=== PATIENT | female | born 1945 | race Caucasian/White ===

== ENCOUNTER 2018-08-23 22:37 | Emergency (ER) | payer MEDICARE, MEDICAID ==
[2018-08-23 23:18] VITALS: BP 160/96
[2018-08-23] MEDS ORDERED: HYDROmorphone 0.5 MG/0.5 ML SYRINGE IVPUSH ONE (23:40)
[2018-08-23] MEDS ORDERED: Ondansetron 4 MG/2 ML SDV IVPUSH ONE (23:40)
[2018-08-23] MEDS ORDERED: methylPREDNISolone Sodium Succinate 125 MG/2 ML SDV IVPUSH ONE (23:41)
--- NOTE | 2018-08-23 23:44 | EDM.PDOC ---
ED HPI GENERAL MEDICAL PROBLEM - General Chief Complaint: Headache Stated Complaint: HEAD ACHE Time Seen by Provider: 08/23/18 23:39 Source of Information: Reports: Patient History Limitations: Reports: No Limitations - History of Present Illness INITIAL COMMENTS - FREE TEXT/NARRATIVE: 73-year-old female presents to the ED with severe upper neck pain primarily on the right side but it radiates across to the other side below each ear. Associated diffuse headache with nausea. Came on 3 days ago and is gradually progressed in intensity. It is worsened by any movement of her head or neck. No falls or closed head injuries.. She has a history of severe coronary disease having had triple bypass 7 ureter years ago after an OR and subsequently one stent placement. She has significant congestive heart failure. Only change in medications was see addition of spironolactone to her treatment plan last week by her funds transfer clerk Dr. Vazquez. This was in an effort to help with potassium supplementation and waist because of Lasix 40 mg twice a day. She her blood pressure is elevated at present 160/96 but she is rather anxious. She is told that her blood pressure usually is normal. Onset: Gradual Onset Date: 08/23/18 Duration: Day(s):, Getting Worse Location: Reports: Neck (With pain referred to the base of her skull and across both sides were upper neck but worse on the right side.) Quality: Reports: Ache (Associated deep aching pain with sharp stabbing component with movement of her head or neck.) Severity: Moderate (Associated nausea) Improves with: Reports: Rest ( 7 out of 10. not moving helps some. ) Worsens with: Reports: Movement (Movement of the head or neck.) Associated Symptoms: Reports: Headaches, Loss of Appetite, Nausea/Vomiting, Shortness of Breath (On exertion chronically). Denies: Confusion, Chest Pain, Cough, cough w sputum, Diaphoresis (Fused headache at present with associated nausea), Fever/Chills, Malaise, Rash, Seizure (Nausea without vomiting) Treatments CAR WORKER: Reports: Acetaminophen, Other (see below) (None.) Neck Pain Score (Numeric/FACES): 10 - Related Data Allergies Allergy/AdvReac Type Severity Reaction Status Date / Time morphine AdvReac Nausea and Verified 08/23/18 23:17 Vomiting Home Meds: Home Meds Aspirin [[place] Aspirin] 81 mg PO DAILY 12/08/14 [History] Cholecalciferol (Vitamin D3) [Vitamin D3] 10,000 unit PO DAILY 12/08/14 [History ] Furosemide [Lasix] 20 mg PO 0600,1400 12/08/14 [History] Insulin Glarg,Human.Rec.Analog [Lantus] 62 unit SQ BEDTIME 12/08/14 [History] Isosorbide Mononitrate [Imdur] 30 mg PO DAILY 12/08/14 [History] Nitroglycerin [Nitrostat] 0.4 mg SL ASDIRECTED PRN 12/08/14 [History] Rosuvastatin [Crestor] 40 mg PO BEDTIME 12/08/14 [History] Dexlansoprazole [Dexilant] 30 mg PO DAILY 12/14/14 [History] FLUoxetine HCl [Prozac] 40 mg PO DAILY 05/05/15 [History] Acetaminophen [Tylenol] 650 mg PO Q4H PRN 03/14/16 [History] Albuterol Sulfate [Proair Hfa] 2 puff IH Q4HR PRN 03/14/16 [History] Losartan [Cozaar] 25 mg PO BID 03/14/16 [History] Albuterol/Ipratropium [DuoNeb 3.0-0.5 MG/3 ML] 3 ml NEB Q4H PRN #60 neb [Rx] Carvedilol [Coreg] 12.5 mg PO BID #60 tablet 10/22/16 [Rx] Dextromethorphan/guaiFENesin [Robitussin DM] 10 ml PO Q4H #240 ml 10/22/16 [Rx] Fluticasone/Salmeterol [Advair Diskus 100-50] 1 puff INH BID #1 diskus 10/22/16 [Rx] Temazepam [Restoril] 15 mg PO BEDTIME #30 cap 10/22/16 [Rx] Theophylline [Theophylline Anhydrous] 300 mg PO DAILY #30 tab.er 10/22/16 [Rx] Tiotropium [Spiriva HandiHaler] 18 mcg INH DAILY #1 diskus 10/22/16 [Rx] Levothyroxine 125 mcg PO ACBREAKFAST 10/24/16 [History] Dronabinol [Marinol] 2.5 mg PO BID #60 cap 10/26/16 [Rx] Insulin Aspart [NovoLOG] 10 unit SUBCUT TIDAC #5 pen 10/26/16 [Rx] Potassium Chloride [Klor-Con 10] 40 meq PO DAILY #30 tab.er 10/26/16 [Rx] Spironolactone [Aldactone] 25 mg PO DAILY 30 Days tablet 10/26/16 [Rx] Dextromethorphan/guaiFENesin [Robitussin DM] 10 ml PO Q4H #1 bottle 10/27/16 [Rx ] oxyCODONE HCl/Acetaminophen [Percocet 5-325 mg Tablet] 1 each PO Q4H PRN #12 tablet 08/24/18 [Rx] predniSONE [Deltasone] 20 mg PO ASDIRECTED #13 tablet 08/24/18 [Rx] Past Medical History HEENT History: Reports: Cataract, Impaired Vision Other HEENT History: wears glasses Cardiovascular History: Reports: Arrhythmia (History of V. tach.), Bypass ( Triple bypass carried out in 2010.), CAD, Heart Failure, High Cholesterol, Hypertension, OR (Prior to her triple bypass 7 years ago. Subsequently has required one stent placement.), Stents (One stent.) Other Cardiovascular History: heart murmur, cardiac cath, v tach Respiratory History: Reports: Asthma, SOB, Other (See Below) Other Respiratory History: ER doctor suspects COPD Gastrointestinal History: Reports: Colon Polyp Other Gastrointestinal History: 14 polyps removed. Genitourinary History: Reports: Chronic Renal Insuffiency Other Genitourinary History: CKD III Musculoskeletal History: Reports: Arthritis, Back Pain, Chronic, Osteoarthritis , Osteoporosis Neurological History: Reports: Neuropathy, Diabetic Psychiatric History: Reports: Depression Endocrine/Metabolic History: Reports: Diabetes, Type II (Controlled with insulin.), Hypothyroidism, Obesity/BMI 30+ - Past Surgical History HEENT Surgical History: Reports: Cataract Surgery Cardiovascular Surgical History: Reports: Coronary Artery Bypass, Coronary Artery Stent Social & Family History - Family History Family Medical History: Noncontributory - Caffeine Use Caffeine Use: Reports: None Other Caffeine Use: 3 cups/day Caffeine Use Comment: 3 cups daily - Living Situation & Occupation Living situation: Reports: , with Spouse Occupation: Retired ED ROS GENERAL - Review of Systems Review Of Systems: See Below Constitutional: Reports: Malaise, Fatigue, Decreased Appetite. Denies: Fever, Chills, Weight Loss HEENT: Reports: Glasses (Last couple of days.). Denies: Hearing Loss, Nosebleed , Throat Swelling Respiratory: Reports: Shortness of Breath. Denies: Wheezing, Pleuritic Chest Pain, Cough, Sputum Cardiovascular: Reports: Dyspnea on Exertion (Occasional lightheadedness when she stands too quickly chronically), Lightheadedness. Denies: Chest Pain, Blood Pressure Problem, Claudication, Orthopnea Endocrine: Reports: Fatigue GI/Abdominal: Reports: Constipation (Occasional problems with constipation.). Denies: Abdominal Pain : Reports: Frequency, Incontinence (Stress component.) Musculoskeletal: Reports: Neck Pain, Shoulder Pain, Back Pain, Joint Pain (Both knees have arthritis she's had the left knee replaced. Occasional hip pain.) Skin: Reports: Bruising (Is fairly easily.) Neurological: Reports: Headache (Due to knee pain.), Difficulty Walking Psychiatric: Reports: No Symptoms ( Occasional headaches.) Hematologic/Lymphatic: Reports: No Symptoms Immunologic: Reports: No Symptoms - Physical Exam Exam: See Below Exam Limited By: No Limitations General Appearance: Alert, WD/WN, Mild Distress (Appears that she is in discomfort.) Eye Exam: Bilateral Eye: Normal Inspection Ears: Normal TMs Throat/Mouth: Normal Inspection, Normal Lips, Normal Teeth, Normal Oropharynx, Other (Tender over both temporomandibular joints.) Head Exam: Atraumatic, Normocephalic Neck: Normal Inspection, Limited Range of Motion, Tender Lateral (Tender laterally particularly on the right side over C3-4-5 level. No crepitus on movement. It is very painful on looking to the left.). No: Lymphadenopathy (L) , Lymphadenopathy (R) Respiratory/Chest: No Respiratory Distress, Decreased Breath Sounds, Wheezing ( Decreased air entry to the lower 25% of both lung saunders. Clinically she has COPD). No: Rales ( vocational expiratory wheeze noted), Rhonchi Cardiovascular: Regular Rate, Rhythm, No Edema, No Gallop, No Murmur (Trade 1 systolic ejection murmur at the left sternal border, but with aortic). No: Normal Peripheral Pulses GI/Abdominal: Normal Bowel Sounds ( stenosis), Soft, Non-Tender, No Organomegaly , Other (Evidence of previous cholecystectomy and she reports total belt hysterectomy.) Neuro Exam (Abbreviated): Alert, Oriented, CN II-XII Intact, Normal Cognition, No Motor/Sensory Deficits Back Exam: Normal Inspection, Decreased Range of Motion, Vertebral Tenderness Extremities: Normal Inspection (MR spine bilaterally.), Limited Range of Motion (Osteophytic changes right knee. Left knee has been replaced. Limited range of motion of both hips as well.) Psychiatric: Normal Affect, Normal Mood Skin Exam: Warm, Dry, Intact, Normal Color, No Rash Course - Vital Signs Last Recorded V/S: Last Vital Signs Temp 36.9 C 08/23/18 23:13 Pulse 78 08/23/18 23:13 Resp 18 08/23/18 23:13 BP 160/96 H 08/23/18 23:13 Pulse Ox 91 L 08/23/18 23:13 - Orders/Labs/Meds Orders: Active Orders 24 hr Category Date Time Status EKG Documentation Completion [RC] STAT Care 08/23/18 23:39 Active Cervical Spine wo Cont [CT] Stat Exams 08/24/18 00:30 Taken Labs: Laboratory Tests 08/24/18 08/24/18 08/24/18 Range/Units 00:12 00:12 00:58 WBC 9.53 (3.98-10.04) K/mm3 RBC 4.73 (3.98-5.22) M/mm3 Hgb 14.6 (11.2-15.7) gm/L Hct 44.0 (34.1-44.9) % MCV 93.0 (79.4-94.8) fl MCH 30.9 (25.6-32.2) pg MCHC 33.2 (32.2-35.5) g/dl RDW Std Deviation 47.3 H (36.4-46.3) fL Plt Count 257 (182-369) K/mm3 MPV 9.5 (9.4-12.3) fl Neutrophils % (Manual) 52 (40-60) % Band Neutrophils % 2 (0-10) % Lymphocytes % (Manual) 39 (20-40) % Atypical Lymphs % 0 % Monocytes % (Manual) 7 (2-10) % Eosinophils % (Manual) 0 L (0.7-5.8) % Basophils % (Manual) 0 L (0.1-1.2) Platelet Estimate Adequate RBC Morph Comment Normal ESR 49 H (0-20) mm/hr PT 10.7 (9.5-12.1) SECONDS INR 0.98 Sodium (136-145) mEq/L Potassium (3.5-5.1) mEq/L Chloride (98-107) mEq/L Carbon Dioxide (21-32) mEq/L Anion Gap (5-15) BUN (7-18) mg/dL Creatinine (0.55-1.02) mg/dL Est Cr Clr Drug Dosing mL/min Estimated GFR (MDRD) (>60) mL/min BUN/Creatinine Ratio (14-18) Glucose (83-115) mg/dL Calcium (8.5-10.1) mg/dL Magnesium (1.8-2.4) mg/dl Total Bilirubin (0.2-1.0) mg/dL AST (15-37) U/L ALT (14-59) U/L Alkaline Phosphatase (46-116) U/L CK-MB (CK-2) (0-3.6) ng/ml Troponin I (0.00-0.056) ng/mL C-Reactive Protein (<1.0) mg/dL NT-Pro-B Natriuret Pep (0-450) pg/mL Total Protein (6.4-8.2) g/dl Albumin (3.4-5.0) g/dl Globulin gm/dL Albumin/Globulin Ratio (1-2) 08/24/18 08/24/18 Range/Units 00:58 00:58 WBC (3.98-10.04) K/mm3 RBC (3.98-5.22) M/mm3 Hgb (11.2-15.7) gm/L Hct (34.1-44.9) % MCV (79.4-94.8) fl MCH (25.6-32.2) pg MCHC (32.2-35.5) g/dl RDW Std Deviation (36.4-46.3) fL Plt Count (182-369) K/mm3 MPV (9.4-12.3) fl Neutrophils % (Manual) (40-60) % Band Neutrophils % (0-10) % Lymphocytes % (Manual) (20-40) % Atypical Lymphs % % Monocytes % (Manual) (2-10) % Eosinophils % (Manual) (0.7-5.8) % Basophils % (Manual) (0.1-1.2) Platelet Estimate RBC Morph Comment ESR (0-20) mm/hr PT (9.5-12.1) SECONDS INR Sodium 137 (136-145) mEq/L Potassium 3.9 (3.5-5.1) mEq/L Chloride 101 (98-107) mEq/L Carbon Dioxide 27 (21-32) mEq/L Anion Gap 12.9 (5-15) BUN 24 H (7-18) mg/dL Creatinine 1.5 H (0.55-1.02) mg/dL Est Cr Clr Drug Dosing 25.63 mL/min Estimated GFR (MDRD) 34 (>60) mL/min BUN/Creatinine Ratio 16.0 (14-18) Glucose 132 H (83-115) mg/dL Calcium 9.0 (8.5-10.1) mg/dL Magnesium 1.8 (1.8-2.4) mg/dl Total Bilirubin 0.5 (0.2-1.0) mg/dL AST 22 (15-37) U/L ALT 24 (14-59) U/L Alkaline Phosphatase 76 (46-116) U/L CK-MB (CK-2) 2.4 (0-3.6) ng/ml Troponin I < 0.017 (0.00-0.056) ng/mL C-Reactive Protein 1.0 (<1.0) mg/dL NT-Pro-B Natriuret Pep 1084 H (0-450) pg/mL Total Protein 7.9 (6.4-8.2) g/dl Albumin 3.2 L (3.4-5.0) g/dl Globulin 4.7 gm/dL Albumin/Globulin Ratio 0.7 L (1-2) Meds: Medications Discontinued Medications Generic Name Dose Route Start Last Admin Trade Name Freq PRN Reason Stop Dose Admin Hydromorphone HCl 0.5 mg 08/23/18 23:40 08/24/18 00:12 Dilaudid IVPUSH 08/23/18 23:41 0.5 mg ONETIME ONE Administration Methylprednisolone Sodium Succinate 62.5 mg 08/23/18 23:41 08/24/18 00:12 Solu-Medrol IVPUSH 08/23/18 23:42 62.5 mg ONETIME ONE Administration Ondansetron HCl 4 mg 08/23/18 23:40 08/24/18 00:12 Zofran IVPUSH 08/23/18 23:41 4 mg ONETIME ONE Administration - Radiology Interpretation Free Text/Narrative:: 73-year-old female presents the ED with gradually worsening cervical neck pain primarily on the right side for the last 3 days. Associated now with a diffuse headache and associated nausea. Not vomited. Neuro exam is normal. Movement of her neck causes intense pain i.e. cervical neck osteophytic changes on clinical exam. She has history of coronary disease and severe congestive failure. She is feeling a little bit more short of breath than normal. Recent medication changes with the addition of Spiriva lactone to her treatment plan last by her funds transfer clerk. Is in an effort to reduce her potassium needs as she is on Lasix 40 mg twice daily for CHF. Clinically she has osteophytic changes in her cervical spine causing her cervical neck pain likely referred pain to the head causing the headache. Plan IV saline lock. Dilaudid 0.5 mg IV with Zofran 4 mg IV. ECG to be done. Routine labs to be done. - Re-Assessments/Exams Free Text/Narrative Re-Assessment/Exam: 08/24/18 01:55 labs are only partially back. Essentially revealed normal hematology. BNP is elevated at 1084. Chemistry is pending. CT of the cervical spine reveals prominent osteophytic spurring projecting posteriorly at C5-C6 level no disc herniation or cord compression is appreciated. There are degenerative changes involving the spinous process of thoracic 1 as well with no spinal canal stenosis. There is diffuse cervical spondylosis with loss of disc space height from C3-C7. No fractures or dislocations. 08/24/18 01:57 Labs reveal a normal white count at 9.53. Differential reveals 52 % neutrophils and 2% band cells. Hemoglobin is good at 14.6 with hematocrit of 44.0. MCV is normal at 93.0. Platelet count is normal 257,000. Sedimentation rate is moderately elevated at 49. PT is 10.7 with an INR of 0.98. BNP is moderately elevated at 1084. Sodium is 137 with a potassium of 3.9. Chloride is 101 with a bicarbonate 27. And a gap is normal at 12.9. BUN is 24 with a creatinine of 1.5. GFR is 34 i.e. stage III chronic kidney disease. Glucose is 132. Calcium is normal at 9.0. Magnesium is 1.8. Liver function normal. CK-MB is 2.4 with a troponin I of less than 0.017. Albumin fraction is slightly low at 3.2. 08/24/18 02:05 Patient reports the neck pain is much improved but still present. She is not able to take anti-inflammatories. He to take a chance to place her on low-dose prednisone for the next 10 days. This will likely aggravate her blood sugars and she may require more insulin while on the medication. Her pain is fairly severe however and there are really no other alternative treatments for her. I will write a prescription for Percocet tabs 5/ 325 mg that she can take 1 every 4-6 hours if needed for pain relief until the steroids start to kick in. 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 predniSONE [Deltasone] 20 mg PO ASDIRECTED #13 tablet Instructions: Headache and Arthritis Referrals: Destiney Henderson MD [Primary Care Provider] - Forms: ED Department Discharge Additional Instructions: Evaluation the emergent tonight in regards to gradually worsening cervical neck pain primarily on the right side of your neck over the last 3 days. His became associate with a diffuse headache with associated nausea this evening. Examination reveals marked tenderness of the cervical spine on the right side particularly in the mid cervical spine C3 ,C4 ,C5 level. CT scan of your cervical spine reveals diffuse arthritic changes throughout the cervical spine. There is no disc herniation however or compression of the spinal cord or evidence of nerve root entrapment. Evaluation of your heart revealed no signs of heart related illness in terms that cardiac markers for heart attack were normal. There is evidence of continued problems with congestive heart failure with an elevated BNP of 1054. This is probably why you were started on Spiriva lactone last week by her funds transfer clerk to help the Lasix work better to help get more fluid off your lungs. You were given pain medication intravenously and initial dose of steroid Solu-Medrol 62.5 mg IV. Just treatment with prednisone 20 mg twice daily with breakfast and supper for 3 days and then 1 tablet in the morning only for another 7 days to relieve inflammation in your cervical spine. You cannot take anti-inflammatories as they will aggravate your heart failure. The prednisone is going to elevate her blood sugars well you're on this medication and you may require an increased dose of insulin while on this medication. Sugar levels were returned to normal values 3 days after it may prednisone is finished. Suggest follow-up with your personal care physician if you're not markedly improved in 3-5 days time. I also wrote a prescription for pain medicine Percocet 5/325 mg. 1 tablet may be taken every 4-6 hours if needed for severe pain in your neck until the steroids starts to work well which usually is in about a day and a half. - My Orders Last 24 Hours: My Active Orders 08/23/18 23:39 EKG Documentation Completion [RC] STAT 08/24/18 00:30 Cervical Spine wo Cont [CT] Stat - Assessment/Plan Last 24 Hours: My Active Orders 08/23/18 23:39 EKG Documentation Completion [RC] STAT 08/24/18 00:30 Cervical Spine wo Cont [CT] Stat
--- NOTE | 2018-08-24 09:20 | CT ---
CT cervical spine Technique: Multiple axial sections were obtained from above C1 inferiorly to the top of T3. Reconstructed sagittal and coronal images were reviewed. Comparison: No prior cervical spine imaging. Findings: Mild degenerative change noted at C1-C2. Mild disc space narrowing is noted at C5-C6. Posterior osteophytes are seen to the right of midline at C5-C6. Minimal scattered degenerative apophyseal change is seen within the cervical spine. Mild scattered anterior endplate osteophytes are seen. No bony central or bony neural foraminal stenosis is seen. No fracture is appreciated. No abnormal subluxation is seen. Slight degenerative change is noted within the uncovertebral joints at C5-C6. Impression: 1. Mild diffuse degenerative change. Diagnostic code #2 I agree with preliminary report issued by [facility] ([facility] report finalized on 08/24/18, 2:39 AM Central Time)
== END 2018-08-24 02:20 | disposition home or self-care (01) ==
LOC: JD.ED 22:37
DX: I13.0 Hypertensive heart and chronic kidney disease with heart failure and stage 1 through stage 4 chronic kidney disease, or unspecified chronic kidney disease (principal); I50.32 Chronic diastolic (congestive) heart failure; M47.812 Spondylosis without myelopathy or radiculopathy, cervical region; N18.9 Chronic kidney disease, unspecified; G44.51 Hemicrania continua; E11.40 Type 2 diabetes mellitus with diabetic neuropathy, unspecified; E11.22 Type 2 diabetes mellitus with diabetic chronic kidney disease; E66.9 Obesity, unspecified; Z88.5 Allergy status to narcotic agent; Z79.82 Long term (current) use of aspirin; Z79.899 Other long term (current) drug therapy
CPT/HCPCS: 36415; 72125; 80053; 82553; 83735; 83880; 84484; 85007; 85027; 85610; 85652; 86140; 93005; 96374; 96375; 99284; J1170; J2405; J2930; 93010

== ENCOUNTER 2022-04-10 12:17 | Emergency (ER) | payer MEDICARE, MEDICAID ==
[2022-04-10] MEDS ORDERED: Sodium Chloride 0.9% 10 ML Syringe FLUSH PRN (12:18)
[2022-04-10] MEDS ORDERED: Sodium Chloride 0.9% 1,000 ML IV SCH (12:30)
[2022-04-10 12:36] VITALS: BP 131/80; PULSE 77
[2022-04-10] MEDS ORDERED: Heparin Sodium 5,000 Units/ML Vial IVPUSH ONE (13:28)
[2022-04-10] MEDS ORDERED: Heparin Sodium/D5W 25,000 UNITS/500 ML BAG IV SCH (13:30)
== END 2022-04-10 14:45 ==
LOC: JD.ED 12:17
DX: I46.9 Cardiac arrest, cause unspecified (principal); R77.8 Other specified abnormalities of plasma proteins; I25.10 Atherosclerotic heart disease of native coronary artery without angina pectoris; I13.0 Hypertensive heart and chronic kidney disease with heart failure and stage 1 through stage 4 chronic kidney disease, or unspecified chronic kidney disease; N18.30 Chronic kidney disease, stage 3 unspecified; I50.9 Heart failure, unspecified; I49.01 Ventricular fibrillation; E78.00 Pure hypercholesterolemia, unspecified; I25.2 Old myocardial infarction; E03.9 Hypothyroidism, unspecified; Z95.5 Presence of coronary angioplasty implant and graft; Z95.1 Presence of aortocoronary bypass graft; Z88.5 Allergy status to narcotic agent; Z79.82 Long term (current) use of aspirin; Z79.4 Long term (current) use of insulin; Z79.899 Other long term (current) drug therapy; Z87.891 Personal history of nicotine dependence
CPT/HCPCS: 36415; 71045; 80053; 84484; 85025; 92950; 93005; 96365; 96366; 96368; 99285; J0282; J1644; J3490; J7030; 93010

== ENCOUNTER 2025-02-21 15:37 | Emergency (ER) | payer MEDICARE, MEDICAID ==
[2025-02-21] MEDS ORDERED: Sodium Chloride 0.9% 10 ML Syringe FLUSH PRN (16:08)
[2025-02-21 16:18] LABS: BASOPHILS PERCENT AUTO 0.5 % (0.0-1.0); EOSINOPHILS ABSOLUTE AUTO 0.1 K/mm3 (0.0-0.4); EOSINOPHILS PERCENT AUTO 1.4 % (0.0-6.0); HEMATOCRIT 45.7 % (37.0-47.0); HEMOGLOBIN 15.6 gm/dl (12.0-16.0); IMMATURE GRAN ABSOLUTE AUTO 0.03 K/mm3 (0.00-0.05); IMMATURE GRAN PERCENT AUTO 0.4 % (0.0-0.4); LYMPHOCYTES ABSOLUTE AUTO 3.4 K/mm3 (1.0-4.8); MEAN CORPUSCULAR HGB CONC 34.1 g/dl (32.0-36.0); MEAN CORPUSCULAR VOLUME 99.6 fl (83.0-99.0); MEAN PLATELET VOLUME 9.3 fl (9.4-12.3); MONOCYTES PERCENT AUTO 12.9 % (0.0-8.0); NEUTROPHILS ABSOLUTE AUTO 3.3 K/mm3 (1.8-7.7); NEUTROPHILS PERCENT AUTO 41.8 % (41.0-71.0); PLATELET COUNT,PLT 198 K/mm3 (150-400); RED BLOOD CELL COUNT 4.59 M/mm3 (4.10-5.30); WHITE BLOOD CELL COUNT,WBC 7.82 K/mm3 (3.9-11.3)
[2025-02-21] MEDS: Diltiazem 25 MG/5 ML SDV IVPUSH ONE (16:20)
[2025-02-21] MEDS: Sodium Chloride 0.9% 1,000 ML IV SCH (16:20)
[2025-02-21 16:25] LABS: PROTHROMBIN TIME 10.6 SECONDS (9.7-12.0)
[2025-02-21 16:26] LABS: PTT,PARTIAL THROMBOPLSTIN TIME 23.5 SECONDS (21.7-31.4)
[2025-02-21 16:30] LABS: A/G RATIO 0.8 (1-2); ALANINE AMINOTRANSFERASE,ALT 49 U/L (14-59); ALBUMIN 3.5 g/dl (3.4-5.0); ALKALINE PHOSPHATASE 56 U/L (46-116); ANION GAP 11.9 (5-15); ASPARTATE AMNIOTRANSFERASE,AST 34 U/L (15-37); BILIRUBIN TOTAL 0.7 mg/dL (0.2-1.0); BLOOD UREA NITROGEN,BUN 31 mg/dL (7-18); BUN/CREATININE RATIO 18.2 (14-18); C-REACTIVE PROTEIN 0.11 mg/dL (<0.30); CALCIUM 9.4 mg/dL (8.5-10.1); CARBON DIOXIDE,CO2 29 mEq/L (21-32); CHLORIDE,CL 104 mEq/L (98-107); CREATININE 1.7 mg/dL (0.55-1.02); ESTIMATED GFR 30 mL/min (>60); GLUCOSE RANDOM 76 mg/dL (70-99); LIPASE 30 U/L (16-77); MAGNESIUM 1.9 mg/dL (1.8-2.4); SODIUM,NA 141 mEq/L (136-145); TROPONIN I HIGH SENSITIVITY 34 pg/mL (<=51)
[2025-02-21 16:35] LABS: POTASSIUM,K 3.9 mEq/L (3.5-5.1)
[2025-02-21] MEDS: Iopamidol 612 MG/ML 100 ML Bottle IVPUSH ONE (16:51)
[2025-02-21] MEDS: Sodium Chloride 0.9% 10 ML Syringe FLUSH ONE (16:51)
[2025-02-21] MEDS: Amiodarone 150 MG/100 ML 100 ML IV ONE (17:06)
[2025-02-21] MEDS: Amiodarone 360 MG/200 ML 360 MG/200 ML BAG IV ONE (17:28)
[2025-02-21 19:38] LABS: APPEARANCE,URINE CLEAR (Clear); BILIRUBIN,URINE NEGATIVE (Negative); COLOR,URINE YELLOW (Yellow); GLUCOSE,URINE NEGATIVE (Negative); KETONES,URINE NEGATIVE (Negative); LEUKOCYTE ESTERASE,URINE NEGATIVE (Negative); NITRITE,URINE NEGATIVE (Negative); OCCULT BLOOD,URINE 2+ (Negative); PROTEIN,URINE 2+ (Negative); UROBILINOGEN,URINE 0.2 (0.2-1.0)
[2025-02-21 19:58] LABS: BACTERIA,URINE FEW /hpf (FEW); MUCUS,URINE FEW /hpf (FEW); SQUAMOUS EPITHELIAL CELLS,UR 0-5 /hpf (0-5)
[2025-02-22 08:36] LABS: ANION GAP 11.9 (5-15); BLOOD UREA NITROGEN,BUN 28 mg/dL (7-18); CALCIUM 9.2 mg/dL (8.5-10.1); CARBON DIOXIDE,CO2 27 mEq/L (21-32); CHLORIDE,CL 104 mEq/L (98-107); CREATININE 1.4 mg/dL (0.55-1.02); ESTIMATED GFR 38 mL/min (>60); GLUCOSE RANDOM 186 mg/dL (70-99); MAGNESIUM 2.1 mg/dL (1.8-2.4); POTASSIUM,K 3.9 mEq/L (3.5-5.1); SODIUM,NA 139 mEq/L (136-145); TROPONIN I HIGH SENSITIVITY 31 pg/mL (<=51)
[2025-02-22] MEDS: Amiodarone 200 MG Tab PO SCH (09:51)
[2025-02-22] MEDS: Insulin Lispro 100 Unit/ML 3 ML KwikPen SUBCUT SCH ×3 (10:48→18:07)
[2025-02-22] MEDS ORDERED: Acetaminophen 325 MG Tab PO PRN (12:27)
[2025-02-22] MEDS: Losartan 25 MG Tab PO SCH ×2 (13:00→18:24)
[2025-02-22] MEDS: Aspirin 81 MG Tab.EC PO SCH (13:04)
[2025-02-22] MEDS: Calcitriol 0.25 MCG Cap PO SCH ×2 (13:06→18:25)
[2025-02-22] MEDS: Levothyroxine 112 MCG Tab PO SCH (13:27)
[2025-02-22] MEDS: Levothyroxine 25 MCG Tab PO SCH (13:35)
[2025-02-22] MEDS: Cyanocobalamin (Vitamin B12) 1,000 MCG Tab PO SCH (14:03)
[2025-02-22] MEDS: Insulin Glargine,Human Rec. Analog 100 Units/ML 3 ML Pen ONE (18:15)
[2025-02-22] MEDS: Insulin Glargine,Human Rec. Analog 100 Units/ML 3 ML Pen SUBCUT STA (18:16)
[2025-02-22 20:57] VITALS: BP 131/64; PULSE 83
[2025-02-22] MEDS: Insulin Glargine,Human Rec. Analog 100 Units/ML 3 ML Pen SUBCUT SCH (21:23)
[2025-02-23] MEDS ORDERED: Non-Formulary Medication 1 Each (Insulin Aspart (Niacinamide) [Fiasp 100 Unit/Ml Flextouch SQ SCH (06:00)
[2025-02-23] MEDS ORDERED: Levothyroxine 125 MCG Tab PO SCH (12:27)
== END 2025-02-22 22:22 ==
LOC: JD.ED 15:37
DX: I48.20 Chronic atrial fibrillation, unspecified (principal); I47.20 Ventricular tachycardia, unspecified; N28.9 Disorder of kidney and ureter, unspecified; R10.10 Upper abdominal pain, unspecified; I25.10 Atherosclerotic heart disease of native coronary artery without angina pectoris; I11.0 Hypertensive heart disease with heart failure; I50.9 Heart failure, unspecified; E78.00 Pure hypercholesterolemia, unspecified; E11.9 Type 2 diabetes mellitus without complications; E03.9 Hypothyroidism, unspecified; Z88.5 Allergy status to narcotic agent; Z79.82 Long term (current) use of aspirin; Z79.899 Other long term (current) drug therapy; Z79.4 Long term (current) use of insulin; Z95.1 Presence of aortocoronary bypass graft; Z95.5 Presence of coronary angioplasty implant and graft; Z79.890 Hormone replacement therapy
CPT/HCPCS: 36415; 71045; 71045-26; 74177; 74177-26; 80048; 80053; 81001; 82947; 83690; 83735; 84484; 85025; 85610; 85730; 86140; 93005; 93010; 96361; 96365; 96366; 96375; 99285; 99285-25; A9270-GY; J0283; J1815; J3490; J7030; Q9967

== ENCOUNTER 2025-07-29 15:49 | Emergency (ER) | payer MEDICARE, MEDICAID ==
[2025-07-29] MEDS: Sodium Chloride 0.9% 10 ML Syringe FLUSH PRN (16:40)
[2025-07-29 17:02] LABS: BASOPHILS ABSOLUTE AUTO 0.1 K/mm3 (0.0-0.2); BASOPHILS PERCENT AUTO 0.9 % (0.0-1.0); EOSINOPHILS ABSOLUTE AUTO 0.2 K/mm3 (0.0-0.4); EOSINOPHILS PERCENT AUTO 3.3 % (0.0-6.0); IMMATURE GRAN ABSOLUTE AUTO 0.03 K/mm3 (0.00-0.05); IMMATURE GRAN PERCENT AUTO 0.4 % (0.0-0.4); LYMPHOCYTES ABSOLUTE AUTO 2.5 K/mm3 (1.0-4.8); LYMPHOCYTES PERCENT AUTO 36.7 % (24.0-44.0); MEAN PLATELET VOLUME 9.4 fl (9.4-12.3); MONOCYTES ABSOLUTE AUTO 0.9 K/mm3 (0.0-0.8); MONOCYTES PERCENT AUTO 14.0 % (0.0-8.0); NEUTROPHILS ABSOLUTE AUTO 3.0 K/mm3 (1.8-7.7); NEUTROPHILS PERCENT AUTO 44.7 % (41.0-71.0); NRBC ABSOLUTE 0.00 (0.00-0.02); NRBC PERCENT 0.0 % (0.0-0.2); PLATELET COUNT,PLT 186 K/mm3 (150-400); RED BLOOD CELL COUNT 4.29 M/mm3 (4.10-5.30); WHITE BLOOD CELL COUNT,WBC 6.70 K/mm3 (3.9-11.3)
[2025-07-29 17:51] LABS: A/G RATIO 0.7 (1-2); ALANINE AMINOTRANSFERASE,ALT 26 U/L (14-59); ASPARTATE AMNIOTRANSFERASE,AST 19 U/L (15-37); BILIRUBIN TOTAL 0.5 mg/dL (0.2-1.0); BLOOD UREA NITROGEN,BUN 49 mg/dL (7-18); CARBON DIOXIDE,CO2 25 mEq/L (21-32); CHLORIDE,CL 97 mEq/L (98-107); CREATININE 1.7 mg/dL (0.55-1.02); ESTIMATED GFR 30 mL/min (>60); GLUCOSE RANDOM 258 mg/dL (70-99); POTASSIUM,K 4.2 mEq/L (3.5-5.1); PROTEIN TOTAL,TP 7.7 g/dl (6.4-8.2); SODIUM,NA 134 mEq/L (136-145); TROPONIN I HIGH SENSITIVITY 25 pg/mL (<=51); TSH 2.576 uIU/mL (0.358-3.74)
[2025-07-29 19:09] VITALS: BP 127/49; PULSE 54
== END 2025-07-29 19:08 | disposition home or self-care (01) ==
LOC: JD.ED 15:49
DX: R00.1 Bradycardia, unspecified (principal); I13.0 Hypertensive heart and chronic kidney disease with heart failure and stage 1 through stage 4 chronic kidney disease, or unspecified chronic kidney disease; I50.9 Heart failure, unspecified; N18.9 Chronic kidney disease, unspecified; I25.10 Atherosclerotic heart disease of native coronary artery without angina pectoris; E11.9 Type 2 diabetes mellitus without complications; E03.9 Hypothyroidism, unspecified; J44.89 Other specified chronic obstructive pulmonary disease; Z88.5 Allergy status to narcotic agent; Z79.82 Long term (current) use of aspirin; Z79.899 Other long term (current) drug therapy; Z79.890 Hormone replacement therapy; Z79.4 Long term (current) use of insulin; Z95.1 Presence of aortocoronary bypass graft
CPT/HCPCS: 36415; 71045; 71045-26; 80053; 83880; 84443; 84484; 85025; 93005; 93246; 99285